=== PATIENT | male | born 1985 | race Hispanic/Latino ===

== ENCOUNTER 2019-12-20 17:44 | Emergency (ER) | payer SELFPAY ==
[~2019-12-20] VITALS: Ht 165.1 cm; Wt 72.6 kg
--- NOTE | 2019-12-20 21:01 | NUR ---
RETURNED FROM CT TO RM 5
--- NOTE | 2019-12-20 21:35 | Diagnostic Imaging Report ---
EXAM: CT Abdomen and Pelvis without contrast INDICATION: Left abdominal pain COMPARISON: None. TECHNIQUE: Abdomen and pelvis were scanned utilizing a multidetector helical scanner from the lung base to the pubic symphysis without administration of IV contrast. Coronal and sagittal reformations were obtained. IV CONTRAST: 100 mL of Isovue 370 ORAL CONTRAST: None COMPLICATIONS: None RADIATION DOSE: Total DLP: 282 mGy*cm Estimated effective dose: (DLP x 0.015 x size factor) mSv CTDIvol has been reviewed. It is below the limits set by the Radiation Protocol Committee (RPC). Dose modulation, iterative reconstruction, and/or weight based adjustment of the mA/kV was utilized to reduce the radiation dose to as low as reasonably achievable. FINDINGS: LINES and TUBES: None. LOWER THORAX: Subtle focal ground glass opacity in the posterior basilar right lower lobe. HEPATOBILIARY: No focal hepatic lesions. No biliary ductal dilation. GALLBLADDER: No radio-opaque stones or sludge. No wall thickening. SPLEEN: No splenomegaly. PANCREAS: No focal masses or ductal dilatation. ADRENALS: No adrenal nodules KIDNEYS/URETERS: A few tiny bilateral nonobstructive renal calculi, largest is in the left kidney, measures 3 mm. No hydronephrosis. No cystic or solid mass lesions. GI TRACT: No abnormal distention, wall thickening, or evidence of bowel obstruction. Appendix is normal. PELVIC ORGANS/BLADDER: Unremarkable. LYMPH NODES: No lymphadenopathy. VESSELS: Unremarkable. PERITONEUM / RETROPERITONEUM: No free air or fluid. BONES: Unremarkable. SOFT TISSUES: Unremarkable. IMPRESSION: 1. A few tiny bilateral nonobstructive renal calculi, largest is in the left kidney, measures 3 mm. 2. Subtle focal ground glass opacity in the posterior basilar right lower lobe can be due to pneumonia. Signed by: Cong Schmitt DO on 12/20/2019 9:31 PM
--- NOTE | 2019-12-20 22:25 | NUR ---
While taking pt's vital signs, asked pt why his pulse rate is so high. He stated "probably because I did cocaine yesterday or maybe because I had a few Monster drinks today." I advised Dr. Nugent what pt said as to the pulse rate.
--- NOTE | 2019-12-20 22:45 | NUR ---
PT HAS BEEN UP MULT TIMES TO USE PHONE TO CALL SOMEONE TO PICK HIM UP
--- NOTE | 2019-12-20 22:46 | Emergency Department Note ---
History of Present Illnes History of Present Illness Chief Complaint: Flank Pain History of Present Illness This is a 34 year old male, with a history of scoliosis and kidney ston es, who presents with chronic left flank pain and burning on urination, along with hesitancy and frequency. Patient states that he was diagnosed with "28 kidney stones" @ 1 year ago, and "he has been unable to have them taken care of." Patient states that the pain has been worse over the past week. Patient denies any penile discharge. He states that he was recently checked for STDs, and that the "tests were negative." Patient states that "the only thing that helps him with his pain is Tylenol #3." He is requesting that he have some to take "at least once a day, so that he can work." Pt states he was previously seen by pain management doctor, but he is no longer seeing them due to the Covid 19 pandemic, and issues with his job. Patient states that several family members have tested positive for Covid 19. Historian: Patient Arrival Mode: Car Parachute Harness Rigger Required: No Onset (how long ago): week(s) (1) Location: left flank Quality: sharp, stabbing Radiation: Reports non-radiation Severity: moderate Onset quality: gradual Duration (how long): week(s) (1, but intermittent pain for several years) Timing of current episode: constant Progression: worsening Chronicity: recurrent Context: Denies recent illness, Denies recent surgery, Denies recent travel, Denies trauma/injury Relieving factors: none Exacerbating factors: none Associated symptoms: Denies chest pain, Denies cough, Denies fever/chills, Denies malaise, Denies nausea/vomiting, Denies shortness of breath Treatments prior to arrival: none Past Medical/Family History Physician Review I have reviewed the patient's past medical and family history. Any updates have been documented here. Past Medical History Recent Fever: No Clinical Suspicion of Infectio: No New/Unexplained Change in Ment: No Past Medical History: None Other Medical History: KIDNEY STONES Scoliosis Past Surgical History: None Other Surgery: L-KNEE/THIGH Social History Smoking Cessation: Never Smoker Alcohol Use: Occasional Any Illegal Drug Use: Yes (MARIJUANA) TB Exposure/Symptoms: No Physically hurt or threatened: No Other Last Tetanus: UTD Any Pre-Existing Lines (PICC,: No Is patient up to date on immun: No Review of Systems Review of Systems Constitutional: Denies chills, Denies fever EENTM: Reports no symptoms Cardiovascular: Denies chest pain Respiratory: Denies cough, Denies dyspnea Gastrointestinal: Denies abdominal pain, Denies diarrhea, Denies nausea, Denies vomiting Genitourinary: Reports no symptoms; Denies discharge, Denies dysuria, Denies frequency, Denies hematuria Musculoskeletal: Reports back pain (/left flank pain); Denies neck pain Integumentary: Reports no symptoms Neurological: Reports no symptoms; Denies headache, Denies tingling, Denies weakness Psychological: Reports no symptoms Review of other systems: All other systems negative Physical Exam Related Data Allergies: Coded Allergies: tramadol (Verified Allergy, Unknown, ITCHING, 12/20/19) Triage Vital Signs Vital Signs Date Time Temp Pulse Resp B/P (MAP) Pulse Ox O2 Delivery O2 Flow Rate FiO2 12/20/19 19:55 98.4 119 18 116/69 100 Room Air Vital signs reviewed: Yes Physical Exam CONSTITUTIONAL Constitutional: Present well-developed, Present well-nourished, Present other (thin male, with large number of tatoos); Absent distressed, Absent ill appearing HENT HENT: Present normocephalic, Present atraumatic, Present oropharynx clear/moist, Present nose normal HENT L/R: Present left ext ear normal, Present right ext ear normal EYES Eyes: Reports PERRL, Reports conjunctivae normal NECK Neck: Present ROM normal; Absent cervical adenopathy PULMONARY Pulmonary: Present effort normal, Present breath sounds normal CARDIOVASCULAR Cardiovascular: Present regular rhythm, Present heart sounds normal, Present capillary refill normal, Present normal rate, Present murmur (3/6 systolic murmur) GASTROINTESTINAL Abdominal: Present soft, Present nontender, Present bowel sounds normal; Absent tender, Absent guarding, Absent rebound, Absent left CVA tenderness GENITOURINARY Genitourinary: Present exam deferred SKIN Skin: Present warm, Present dry; Absent rash MUSCULOSKELETAL Musculoskeletal: Present ROM normal; Absent edema, Absent tenderness NEUROLOGICAL Neurological: Present alert, Present oriented x 3, Present no gross motor or sensory deficits PSYCHOLOGICAL Psychological: Present mood/affect normal, Present judgement normal Results Laboratory Laboratory CBC - nl CMP - nl except for Cr = 1.2, CK = 781, AST = 51; UA = Vic - small, Blood - None, Pro = 30 mg/dl; Lab results reviewed: Yes Imaging Imaging results reviewed: Yes Impressions [place] [id number] Patient Name: CECI SINGH JR MR #: [id number] : 1985 Age/Sex: 34/M Req #: [id number] Adm Physician: Ordered by: ESTRELLA PRIDE MD Report #: [id number] [facility] Room/Bed: Procedure: [id number] HOPD/CT ABD/PEL WO CONTRAST-HOPD Exam Date: 12/20/19 Exam Time: 2100 REPORT STATUS: Signed EXAM: CT Abdomen and Pelvis without contrast INDICATION: Left abdominal pain COMPARISON: None. TECHNIQUE: Abdomen and pelvis were scanned utilizing a multidetector helical scanner from the lung base to the pubic symphysis without administration of IV contrast. Coronal and sagittal reformations were obtained. IV CONTRAST: 100 mL of Isovue 370 ORAL CONTRAST: None COMPLICATIONS: None RADIATION DOSE: Total DLP: 282 mGy*cm Estimated effective dose: (DLP x 0.015 x size factor) mSv CTDIvol has been reviewed. It is below the limits set by the Radiation Protocol Committee (RPC). Dose modulation, iterative reconstruction, and/or weight based adjustment of the mA/kV was utilized to reduce the radiation dose to as low as reasonably achievable. FINDINGS: LINES and TUBES: None. LOWER THORAX: Subtle focal ground glass opacity in the posterior basilar right lower lobe. HEPATOBILIARY: No focal hepatic lesions. No biliary ductal dilation. GALLBLADDER: No radio-opaque stones or sludge. No wall thickening. SPLEEN: No splenomegaly. PANCREAS: No focal masses or ductal dilatation. ADRENALS: No adrenal nodules KIDNEYS/URETERS: A few tiny bilateral nonobstructive renal calculi, largest is in the left kidney, measures 3 mm. No hydronephrosis. No cystic or solid mass lesions. GI TRACT: No abnormal distention, wall thickening, or evidence of bowel obstruction. Appendix is normal. PELVIC ORGANS/BLADDER: Unremarkable. LYMPH NODES: No lymphadenopathy. VESSELS: Unremarkable. PERITONEUM / RETROPERITONEUM: No free air or fluid. BONES: Unremarkable. SOFT TISSUES: Unremarkable. IMPRESSION: 1. A few tiny bilateral nonobstructive renal calculi, largest is in the left kidney, measures 3 mm. 2. Subtle focal ground glass opacity in the posterior basilar right lower lobe can be due to pneumonia. Signed by: Cong Schmitt DO on 12/20/2019 9:31 PM Dictated By: CONG SCHMITT DO 30 Transcribed By: LESA on 12/20/192130 COPY TO: ESTRELLA PRIDE MD~ Diagnostics Tests Diagnostic test(s) reviewed: Yes Assessment & Plan Medical Decision Making MDM Patient's heart rate is elevated on presentation, and somewhat decreased but time of discharge. Patient had no signs of volume depletion over overwhelming infection. Other vitals were stable. Patient admitted to using cocaine yesterday and drinking to large, monster drinks today, both of which can elevate the heart rate. Patient is strongly encouraged to avoid drugs and monster drinks, due to undesired side effects, and excess stress on the heart. Patient voiced understanding of the plan. - Take medications as directed. - Self quarantine 14 days, due to probable Covid 19 pneumonia, found incidentally on CT of the abdomen, which looks at the lower lungs. - Return to the ER if you develop difficulty breathing or shortness of breath - Follow-up with urology, regarding the chronic, nonobstructing kidney stones. These are UNLIKELY causing your chronic pain. - Avoid using cocaine and drinking monster drinks as they both elevate her heart rate and can damage her heart. (Patient remained in the lobby for at least 2 hours, following discharge, due to lack of a ride home to [place].) Assessment & Plan Final Impression: (1) Pneumonia due to COVID-19 virus (2) Nephrolithiasis (3) Suspected COVID-19 virus infection Depart Disposition: HOME, SELF-CARE Last Vital Signs Date Time Temp Pulse Resp B/P (MAP) Pulse Ox O2 Delivery O2 Flow Rate FiO2 12/20/19 22:23 109 18 142/69 100 12/20/19 19:55 98.4 Room Air Medications in the ED D/C meds: - Z-pack - Prednisone 20 mg - 2 tabs together x 5 day prednisone. - Tramadol 50 mg, # 15, no RF. ESTRELLA PRIDE MD Dec 20, 2019 22:46
[2019-12-20 23:00] VITALS: BP 142/69
== END 2019-12-20 23:00 | disposition home or self-care (01) ==
LOC: FSED 20:45
DX: U07.1 COVID-19 (principal); J18.9 Pneumonia, unspecified organism; N20.0 Calculus of kidney; R30.0 Dysuria
CPT/HCPCS: 74176; 80048; 80076; 81003; 85025; 99284